=== PATIENT | male | born 1985 | race Hispanic/Latino ===

== ENCOUNTER 2019-01-30 15:25 | Emergency (ER) | payer OTHER ==
--- OUTSIDE RECORDS SUMMARY | 2019-01-30 15:28 | XMS REPORT | Clinical Summary ---
:1985 Author Organization [facility] Address [address] [place] [address] Care Team Providers Name Role Phone Isrrael Haas MD Primary Care Provider Allergies No Known Allergies Medications No known medications Active Problems Problem Noted Date Dehydration 05/27/2017 Encounters Date Type Specialty Care Team Description 03/26/2018 Office Visit Orthopedic Surgery Zoie Munoz, Chronic right shoulder pain (Primary Dx); Type II SLAP lesion, right, initial encounter after 01/29/2018 Social History Tobacco Use Types Packs/Day Years Used Date Never Smoker Alcohol Use Drinks/Week oz/Week Comments Yes socially Sex Assigned at Date Recorded Not on file Job Start Date Occupation Industry Not on file Not on file Not on file Travel History Travel Start Travel End No recent travel history available. Last Filed Vital Signs Vital Sign Reading Time Taken Blood Pressure - - Pulse - - Temperature - - Respiratory Rate - - Oxygen Saturation - - Inhaled Oxygen Concentration - - Weight 76.2 kg (168 lb) 03/26/2018 8:37 AM CDT Height 171.5 cm (5' 7.5") 03/26/2018 8:37 AM CDT Body Mass Index 25.92 03/26/2018 8:37 AM CDT Plan of Treatment Health Maintenance Due Date Last Done Comments INFLUENZA VACCINE 03/21/2019 Procedures Procedure Name Priority Date/Time Associated Diagnosis Comments XR SHOULDER 2+ VW Routine 03/26/2018 8:44 AM Chronic right Results for this RIGHT CDT shoulder pain procedure are in the results section. after 01/29/2018 Results XR Shoulder 2+ Vw Right (03/26/2018 8:44 AM CDT) Specimen Narrative Performed At Radiographs of the right shoulder, 3 views, AP, Y and axillary lateral [facility] views: No fracture, no dislocation, normal alignment, preserved glenohumeral joint space, no pathologic lesion, no greater tuberosity cysts, preserved acromiohumeral interval, type II acromion, AC joint degenerative changes Performing Organization Address City/State/Zipcode Phone Number [facility] [address] [place] [address] after 01/29/2018 Advance Directives Patient has advance care planning documents on file. For more information, please contact:Jak Alarcon[address] [place] [address]
--- OUTSIDE RECORDS SUMMARY | 2019-01-30 15:28 | XMS REPORT ---
:1985 Author Organization [facility] Address [address] [place] [address] [place] [id number] Care Team Providers Name Role Phone Unavailable Unavailable Unavailable Problems This patient has no known problems. Allergies, Adverse Reactions, Alerts This patient has no known allergies or adverse reactions. Medications This patient has no known medications.
--- NOTE | 2019-01-30 16:52 | ER ---
Nurse's Notes [facility] Name: Osmel Welch Age: 33 yrs Sex: Male : 1985 Arrival Date: 01/30/2019 Time: 15:29 Bed 30 Private MD: Diagnosis: Contusion of right lower leg Presentation: 01/30 15:39 Presenting complaint: Patient states: i was at work and moving things from a van and my hj R leg (my calf area); hit the part of the door; it happened January; its swollen now and i just want to rule out blood clot;. Transition of care: patient was not received from another setting of care. Onset of symptoms was January 30, 2019. Risk Assessment: Do you want to hurt yourself or someone else? Patient reports no desire to harm self or others. Initial Sepsis Screen: Does the patient meet any 2 criteria? No. Patient's initial sepsis screen is negative. Does the patient have a suspected source of infection? No. Patient's initial sepsis screen is negative. Care prior to arrival: None. 15:39 Method Of Arrival: Ambulatory 15:39 Acuity: SCOTT 4 hj Historical: - Allergies: 15:42 No Known Allergies; hj - PMHx: 15:42 None; hj - PSHx: 15:42 None; hj - Immunization history:: Adult Immunizations up to date. - Social history:: Smoking status: Patient/guardian denies using tobacco, never smoked. - Ebola Screening: : No symptoms or risks identified at this time. Screenin:31 Abuse screen: Denies threats or abuse. Denies injuries from another. Nutritional rv screening: No deficits noted. Tuberculosis screening: No symptoms or risk factors identified. Fall Risk None identified. Assessment: 16:30 General: Appears in no apparent distress. comfortable, Behavior is calm, cooperative. rv Pain: Complains of pain in right calf. Neuro: Level of Consciousness is awake, alert, obeys commands, Oriented to person, place, time, situation. Cardiovascular: Patient's skin is warm and dry. Respiratory: Airway is patent. GI: No signs and/or symptoms were reported involving the gastrointestinal system. : No signs and/or symptoms were reported regarding the genitourinary system. EENT: No signs and/or symptoms were reported regarding the EENT system. Derm: Skin is intact. Musculoskeletal: Reports pain in right calf. 16:52 Reassessment: patient came back from x-ray. awaiting results. rv Vital Signs: 15:42 BP 137 / 79; Pulse 85; Resp 18; Temp 98.7(TE); Pulse Ox 98% on R/A; Weight 76.2 kg; hj Height 5 ft. 7 in. (170.18 cm); Pain 7/10; 17:12 BP 126 / 76; Pulse 79; Resp 17; Temp 98.4; Pulse Ox 99% ; rv 15:42 Body Mass Index 26.31 (76.20 kg, 170.18 cm) hj ED Course: 15:29 Patient arrived in ED. mr 15:41 Triage completed. hj 15:42 Arm band placed on right wrist. hj 16:00 Tirso Garcia, RN is Primary Nurse. rv 16:01 Grace Chiang FNP-C is PHCP. kb 16:01 Darnell Worley MD is Attending Physician. kb 16:31 Patient has correct armband on for positive identification. Bed in low position. Call rv light in reach. Side rails up X 1. Pulse ox on. NIBP on. 16:53 US Extremity Venous Unilateral Ltd In Process Unspecified. EDMS 17:13 No provider procedures requiring assistance completed. Patient did not have IV access rv during this emergency room visit. Administered Medications: No medications were administered Outcome: 16:52 Discharge ordered by MD. kb 17:13 Discharged to home ambulatory. rv 17:13 Condition: good 17:13 Discharge instructions given to patient, Instructed on discharge instructions, follow up and referral plans. Demonstrated understanding of instructions, follow-up care. 17:14 Patient left the ED. rv Signatures: Dispatcher [employer] EDMS Grace Chiang FNP-C FNP-Ckb Ghada Gramajo Sarath Mayes, RN RN Tirso Garcia, CHEYANNE RN rv Corrections: (The following items were deleted from the chart) 15:43 15:42 Pulse 85bpm; Resp 18bpm; Pulse Ox 98% RA; Temp 98.7F Temporal; 76.2 kg; Height 5 hj ft. 7 in.; BMI: 26.3; Pain 7/10; hj
--- NOTE | 2019-01-30 16:53 | EDPHYS ---
Physician Documentation [facility] Name: Osmel Welch Age: 33 yrs Sex: Male : 1985 Arrival Date: 01/30/2019 Time: 15:29 Bed 30 Private MD: ED Physician Darnell Worley HPI: 01/30 16:49 This 33 yrs old Male presents to ER via Ambulatory with complaints of Leg kb Injury. 16:49 The patient presents with a contusion, an injury, swelling, tenderness. The complaints kb affect the right calf. Context: The problem was sustained outdoors, resulted from a direct blow, from a door, the patient can fully bear weight, the patient is able to ambulate, Problem is a result from a previous injury: No. 16:51 Onset: The symptoms/episode began/occurred 2 day(s) ago. Modifying factors: The kb symptoms are alleviated by nothing. the symptoms are aggravated by weight bearing, palpation. Associated signs and symptoms: Pertinent positives: swelling, Pertinent negatives calf tenderness, fever, nausea, numbness, rash, tingling, vomiting, warmth, weakness. Treatment prior to arrival includes: no previous treatment. Severity of symptoms: At their worst the symptoms were mild, moderate, in the emergency department the symptoms are unchanged. The patient has not experienced similar symptoms in the past. The patient has not recently seen a physician. Pt reports contusion of right calf after car door hit him in the calf. Went to and was told he needed an ultrasound so he needed to come to the ER. Historical: - Allergies: 15:42 No Known Allergies; hj - PMHx: 15:42 None; hj - PSHx: 15:42 None; hj - Immunization history:: Adult Immunizations up to date. - Social history:: Smoking status: Patient/guardian denies using tobacco, never smoked. - Ebola Screening: : No symptoms or risks identified at this time. ROS: 16:47 Constitutional: Negative for fever, chills, and weight loss, Cardiovascular: Negative kb for chest pain, palpitations, and edema, Respiratory: Negative for shortness of breath, cough, wheezing, and pleuritic chest pain, Abdomen/GI: Negative for abdominal pain, nausea, vomiting, diarrhea, and constipation, Neuro: Negative for headache, weakness, numbness, tingling, and seizure. 16:47 MS/extremity: Positive for abrasion, contusion, ecchymosis, swelling, tenderness, of the right calf. Exam: 16:47 Constitutional: This is a well developed, well nourished patient who is awake, alert, kb and in no acute distress. Head/Face: Normocephalic, atraumatic. Chest/axilla: Normal chest wall appearance and motion. Nontender with no deformity. No lesions are appreciated. Cardiovascular: Regular rate and rhythm with a normal S1 and S2. No gallops, murmurs, or rubs. Normal PMI, no JVD. No pulse deficits. Respiratory: Lungs have equal breath sounds bilaterally, clear to auscultation and percussion. No rales, rhonchi or wheezes noted. No increased work of breathing, no retractions or nasal flaring. Abdomen/GI: Soft, non-tender, with normal bowel sounds. No distension or tympany. No guarding or rebound. No evidence of tenderness throughout. MS/ Extremity: Pulses equal, no cyanosis. Neurovascular intact. Full, normal range of motion. Neuro: Awake and alert, GCS 15, oriented to person, place, time, and situation. Cranial nerves II-XII grossly intact. Motor strength 5/5 in all extremities. Sensory grossly intact. Cerebellar exam normal. Normal gait. 16:47 Skin: injury, contusion(s), that are superficial, of the right calf. Vital Signs: 15:42 BP 137 / 79; Pulse 85; Resp 18; Temp 98.7(TE); Pulse Ox 98% on R/A; Weight 76.2 kg; hj Height 5 ft. 7 in. (170.18 cm); Pain 7/10; 17:12 BP 126 / 76; Pulse 79; Resp 17; Temp 98.4; Pulse Ox 99% ; rv 15:42 Body Mass Index 26.31 (76.20 kg, 170.18 cm) MDM: 16:04 Patient medically screened. kb 16:47 Data reviewed: vital signs, nurses notes. Data interpreted: Pulse oximetry: on room air kb is 98 %. Interpretation: normal. Counseling: I had a detailed discussion with the patient and/or guardian regarding: the historical points, exam findings, and any diagnostic results supporting the discharge/admit diagnosis, radiology results, the need for outpatient follow up, a family practitioner, to return to the emergency department if symptoms worsen or persist or if there are any questions or concerns that arise at home. 01/30 16:07 Order name: US Extremity Venous Unilateral Ltd kb Administered Medications: No medications were administered Disposition: 01/30/19 16:52 Discharged to Home. Impression: Contusion of right lower leg. - Condition is Stable. - Discharge Instructions: Contusion, [id number]. - Medication Reconciliation Form, Thank You Letter, Antibiotic Education, Prescription Opioid Use, Work release form form. - Follow up: Emergency Department; When: As needed; Reason: Worsening of condition. Follow up: Private Physician; When: 2 - 3 days; Reason: Recheck today's complaints, Continuance of care, Re-evaluation by your physician. Signatures: Dispatcher [employer] EDGrace Vieyra, CASE MANAGEMENT ASSOCIATE-C CASE MANAGEMENT ASSOCIATE-Sarath Fong RN RN Tirso Mckenna RN RN rv Corrections: (The following items were deleted from the chart) 17:14 16:52 01/30/2019 16:52 Discharged to Home. Impression: Contusion of right lower leg. rv Condition is Stable. Forms are Medication Reconciliation Form, Thank You Letter, Antibiotic Education, Prescription Opioid Use. Follow up: Emergency Department; When: As needed; Reason: Worsening of condition. Follow up: Private Physician; When: 2 - 3 days; Reason: Recheck today's complaints, Continuance of care, Re-evaluation by your physician. kb
--- NOTE | 2019-01-30 17:16 | RAD REPORT ---
EXAM DESCRIPTION: US - Extremity Venous Uni Ltd - 01/30/2019 4:54 pm CLINICAL HISTORY: Right lower extremity pain COMPARISON: None. TECHNIQUE: Real-time sonographic evaluation of the right lower extremity deep venous systems was per formed. FINDINGS: Normal compressibility, flow augmentation, phasic flow and spontaneous flow are identified in the right lower extremity common femoral, superficial femoral, popliteal and posterior tibial vei ns. No intraluminal filling defects seen. In the area of pain and swelling, no hematoma or mass identified. IMPRESSION: No DVT in the right lower extremity.
== END 2019-01-30 17:14 | disposition home or self-care (01) ==
LOC: ER 15:25
DX: S80.11XA Contusion of right lower leg, initial encounter (principal); W22.8XXA Striking against or struck by other objects, initial encounter; Y93.9 Activity, unspecified; Y92.89 Other specified places as the place of occurrence of the external cause
CPT/HCPCS: 93971; 99283